=== PATIENT | male | born 1990 | race Caucasian/White ===

== ENCOUNTER 2016-09-13 18:52 | Emergency (ER) | payer OTHER ==
[~2016-09-13] VITALS: Ht 170.2 cm; Wt 74.0 kg
[~2016-09-13 18:52] MED LIST: LORA1TAB PO; METO25TA91 PO; PARO20TA4 PO
[2016-09-13 19:30] LABS: HEMATOCRIT 46.5 % (39.2-51.8); HEMOGLOBIN 15.8 g/dL (13.7-18.0); WHITE BLOOD COUNT 8.3 x10^3/uL (3.4-10)
[2016-09-13] MEDS ORDERED: SODIUM CHLORIDE FLUSH 10ML SYR IVF ONE (19:30)
[2016-09-13] MEDS ORDERED: METOPROLOL TARTRATE 25 MG TABLET PO ONE (19:30)
[2016-09-13] MEDS ORDERED: METO25TA91 PO (19:30)
[2016-09-13] MEDS ORDERED: PARO10TA3 PO (19:30)
[2016-09-13 19:41] LABS: BLOOD UREA NITROGEN 12 mg/dL (7-18)
[2016-09-13] MEDS ORDERED: METOPROLOL TARTRATE 50 MG TABLET ONE (19:47)
[2016-09-13 20:43] VITALS: BP 106/66
== END 2016-09-13 20:51 | disposition home or self-care (01) ==
LOC: ED 20:20
DX: I47.1 Supraventricular tachycardia (principal); F17.200 Nicotine dependence, unspecified, uncomplicated
CPT/HCPCS: 36415; 71010; 80048; 82040; 83735; 84439; 84443; 85025; 93005; 99285

== ENCOUNTER 2016-09-27 03:59 | Emergency (ER) | payer OTHER ==
[~2016-09-27] VITALS: Ht 170.2 cm; Wt 74.3 kg
[~2016-09-27 03:59] MED LIST changes: +PARO10TA3 PO
[2016-09-27 04:52] LABS: HEMATOCRIT 45.9 % (39.2-51.8); HEMOGLOBIN 15.7 g/dL (13.7-18.0); WHITE BLOOD COUNT 11.8 x10^3/uL (3.4-10)
[2016-09-27 05:06] LABS: ASPARTATE AMINO TRANSFERASE 16 U/L (15-37); BLOOD UREA NITROGEN 15 mg/dL (7-18)
[2016-09-27 06:09] VITALS: BP 101/52
== END 2016-09-27 06:11 | disposition home or self-care (01) ==
LOC: ED 05:14
DX: F41.1 Generalized anxiety disorder (principal)
CPT/HCPCS: 36415; 80053; 84436; 84443; 85025; 93005; 99285

== ENCOUNTER 2019-06-08 23:53 | Emergency (ER) | payer OTHER ==
[~2019-06-08] VITALS: Ht 172.7 cm; Wt 77.2 kg
[~2019-06-08 23:53] MED LIST changes: +OMEP40CA42 PO; +PIND10TA PO
[2019-06-09] MEDS ORDERED: SODIUM CHLORIDE 0.9% 1,000 ML IV ONE (00:10)
[2019-06-09] MEDS ORDERED: OMNIPAQUE 350 MG/ML, 100ML BOTTLE ONE (00:20)
[2019-06-09 00:26] LABS: BASOPHILS # (AUTO) 0.04 x10^3/uL (0-0.1); BASOPHILS % (AUTO) 0 % (0-1); EOSINOPHILS # (AUTO) 0.16 x10^3/uL (0-0.4); EOSINOPHILS % (AUTO) 2 % (1-7); LYMPHOCYTES # (AUTO) 1.93 x10^3/uL (1-3.4); LYMPHOCYTES % (AUTO) 23 % (22-44); MD NO; MEAN CORPUSCULAR HEMOGLOBIN 32.9 pg (27.5-34.5); MEAN CORPUSCULAR HGB CONC 33.9 g/dL (33.2-36.2); MEAN CORPUSCULAR VOLUME 97.1 fL (81-97); MEAN PLATELET VOLUME 10.6 fL (7.4-10.4); MONOCYTES # (AUTO) 0.61 x10^3/uL (0.2-0.8); MONOCYTES % (AUTO) 7 % (2-9); NEUTROPHILS # (AUTO) 5.71 x10^3/uL (1.8-6.8); NEUTROPHILS % (AUTO) 68 % (42-75); PLATELET COUNT 256 x10^3/uL (130-400); RED BLOOD COUNT 4.96 x10^6/uL (4.38-5.82); RED CELL DISTRIBUTION WIDTH 12.3 % (9.4-14.8)
[2019-06-09] MEDS ORDERED: PIND10TA PO (00:29)
[2019-06-09] MEDS ORDERED: SODIUM CHLORIDE FLUSH 10ML SYR IVF ONE (00:30)
--- NOTE | 2019-06-09 00:30 | NUR ---
PT RESTING ON CHRISTOPHE, JAMES APPLIED, SIDERAILS UP X2, CALL LIGHT WITHIN REACH. IV SITE STARTED, IV FLUIDS INFUSING. PROVIDED PT WITH URINE CUP FOR SAMPLE, PT STATED " I CAN'T PEE YET"
[2019-06-09 00:38] LABS: ALANINE AMINOTRANSFERASE 44 U/L (12-78); ALBUMIN 4.1 g/dL (3.4-5.0); ANION GAP 6 mmol/L (5-15); CALCIUM 8.9 mg/dL (8.5-10.1); CHLORIDE 107 mmol/L (98-107); CREATININE 1.09 mg/dL (0.7-1.3)
[2019-06-09 00:41] LABS: ALKALINE PHOSPHATASE 97 U/L (45-117); BILIRUBIN,TOTAL 0.7 mg/dL (0.2-1.0); TOTAL PROTEIN 7.7 g/dL (6.4-8.2)
--- NOTE | 2019-06-09 01:07 | NUR ---
Break RN: urine sent to lab. patient to CT scan.
[2019-06-09 01:17] LABS: MICROSCOPIC NOT IND
[2019-06-09 01:20] LABS: CULTURE INDICATED? NO
[2019-06-09 01:27] VITALS: BP 117/66
--- NOTE | 2019-06-09 01:28 | NUR ---
PT RESTING ON GURNEY, DENIES NEEDS, MONITORS IN PLACE, CALL LIGHT WITHIN REACH. AWAITING URINE AND CT RESULT
== END 2019-06-09 02:22 | disposition home or self-care (01) ==
LOC: ED 06-09 00:13
DX: R10.31 Right lower quadrant pain (principal); I47.1 Supraventricular tachycardia; Z87.891 Personal history of nicotine dependence
CPT/HCPCS: 36415; 74177; 80053; 81003; 83690; 85025; 99285; J7030; Q9967